=== PATIENT | female | born 1970 | race Caucasian/White ===

== ENCOUNTER 2017-11-13 18:13 | Emergency (ER) | payer MEDICAID ==
[~2017-11-13] VITALS: Ht 160 cm; Wt 78.3 kg
[~2017-11-13 18:13] MED LIST: DENIES
[2017-11-13 18:23] VITALS: Ht 160 cm; Wt 78.3 kg
--- NOTE | 2017-11-14 03:40 | ERD ---
ER Documentation Chief Complaint Chief Complaint bib self from clinic for left sided facial numbness, HPI 47-year-old female presents to the emergency department for complaints of right- sided facial paralysis, right-sided ear pain, right-sided tongue pain as well as tingling in her right upper extremity. She states her symptoms began approximately 21 hours ago and have remained constant. Patient denies weakness in her extremities, numbness, confusion, headache, nausea, vomiting, dizziness or blurred vision. She denies chest pain or shortness of breath. Denies recent illness, fever or chills. He was seen by her primary care physician who sent her to the emergency department to rule out acute stroke. ROS All systems reviewed and are negative except as per history of present illness. Medications Home Meds Reported Medications [Denies] No Conflict Check 05/17/11 Allergies Allergies: Coded Allergies: Penicillins (Verified Allergy, Unknown, 11/14/17) PMhx/Soc History of Surgery: Yes (CECESARIAN) Anesthesia Reaction: No Hx Neurological Disorder: No Hx Respiratory Disorders: Yes (ASTHMA) Hx Cardiac Disorders: No Hx Psychiatric Problems: No Hx Miscellaneous Medical Probl: No (DM) Hx Alcohol Use: No Hx Substance Use: No Hx Tobacco Use: No Smoking Status: Never smoker Physical Exam Vitals Vital Signs Date Time Temp Pulse Resp B/P Pulse Ox O2 Delivery O2 Flow Rate FiO2 11/13/17 21:59 97.9 85 16 145/69 96 Room Air 11/13/17 18:23 98.8 94 18 140/67 96 Physical Exam Const: Developed, well nourished, in no acute distress Head: Atraumatic Eyes: Normal Conjunctiva ENT: Normal External Ears, Nose and Mouth. Neck: Full range of motion..~ No meningismus. Resp: Clear to auscultation bilaterally Cardio: Regular rate and rhythm, no murmurs Abd: Soft, non tender, non distended. Normal bowel sounds Skin: No petechiae or rashes Back: No midline or flank tenderness Ext: No cyanosis, or edema. Patient with equal strength against resistance at bilateral shoulders elbows and wrists. Distal radial, median, ulnar motor function intact. Radial pulses 2+ and equal distally. His capillary refill distally. She is able to bear full weight and ambulate. Neur: Awake and alert, PERRLA, EOMI. No pronator drift. Finger to nose intact. Patient with obvious right-sided facial droop. Patient with asymmetric smile and unable to puff her cheeks on the right side. She is unable to raise her eyebrow on the right side of her face. She is able to close both eylids completely and has good strength against resistance. Psych: Normal Mood and Affect Results 24 hrs Current Medications Medications (Trade) Dose Ordered Sig/Fabby Route PRN Reason Start Time Stop Time Status Last Admin Dose Admin Prednisone (Prednisone) 60 mg ONCE ONCE PO 11/14/17 04:00 11/14/17 04:01 DC 11/14/17 04:31 Valacyclovir HCl (Valtrex) 1,000 mg ONCE ONCE PO 11/14/17 04:00 11/14/17 04:01 DC 11/14/17 04:31 Procedures/MDM PROCEDURE: CT Brain without contrast. CLINICAL INDICATION: Right facial droop, right upper extremity tingling TECHNIQUE: A CT of the brain was performed on a GE 64-slice CT scanner utilizing axial imaging from the skull base through the vertex without IV contrast. Multiplanar reformatted images were not submitted. Images were reviewed on a PACS workstation. The CTDIvol is 44.93 mGy and the DLP is 720.23 mGycm. One or more of the following dose reduction techniques were used: automated exposure control, adjustment of the mA and/or kV according to patient size, or use of iterative reconstruction technique. DICOM images are available. COMPARISON: None FINDINGS: There is no intracranial hemorrhage, mass effect, or midline shift. No extra- axial fluid collection is seen. The ventricles and sulci are normal in size and configuration. The density of the brain is normal, and the sloan white matter differentiation appears well-preserved. The brainstem and posterior fossa are normal. The calvarium is normal. The paranasal sinuses are well pneumatized. There is a left odin bullosa. IMPRESSION: 1. No evidence of acute intracranial pathology. RPTAT: HCNS Physician William Date Time Electronically viewed and signed by Physician William on 11/14/2017 04: 44 CS/ CC: YUNI BECKHAM PA-C This is a 47-year-old otherwise healthy female presents the emergency department for complaints of right-sided facial droop 21 hours. Patient reported right-sided upper extremity and facial tingling as well as pain in her tongue and right ear. She denied headache, nausea, vomiting, dizziness, confusion, numbness, chest pain or shortness of breath. Physical exam with complete right-sided facial paralysis including paralysis of her frontalis muscle. She was alert and oriented 3 and otherwise neurologically intact. Patient did not exhibit weakness in her upper extremity and was neurovascularly intact distally. Vital signs reviewed and unremarkable upon arrival. EKG: Interpreted by supervising physician [place]. Rate/Rhythm: Normal Sinus Rhythm QRS, ST, T-waves: No changes consistent w/ acute ischemia Impression: No evidence of acute ischemia or arrhythmia. Possible left atrial enlargement. CT without evidence of acute process. Imaging results provided to patient. Patient symptoms likely due to an acute viral syndrome or Scruggs's palsy. At this time low suspicion for acute stroke, coronary syndrome, PE, DVT or CVA. She received 1 dose of steroids and valacyclovir while in the emergency department. Recommended for her to continue this treatment for 1 week with close follow-up with her primary care provider. Strict return precautions discussed. Based on patient's history of present illness and physical examination the decision was made to discharge. The patient was re-evaluated after ED treatment and stabilizing measures, and symptoms have improved. There is no evidence of life threatening injuries or illnesses at this time. On re-examination, patient resting in no distress, stable vital signs, reports feeling better and safe for discharge with outpatient follow up with PMD in 1-2 days. Patient given return precautions. Departure Diagnosis: Primary Impression: Facial paralysis on right side Additional Impressions: Tingling of right arm and right side of face Scruggs's palsy YUNI BECKHAM PA-C Nov 14, 2017 03:40
[2017-11-14] MEDS ORDERED: predniSONE 20 MG TAB PO ONE (04:00)
[2017-11-14] MEDS ORDERED: VALACYCLOVIR 500 MG TAB PO ONE (04:00)
--- NOTE | 2017-11-14 04:45 | RADRPT ---
PROCEDURE: CT Brain without contrast. CLINICAL INDICATION: Right facial droop, right upper extremity tingling TECHNIQUE: A CT of the brain was performed on a GE 64-slice CT scanner utilizing axial imaging fr om the skull base through the vertex without IV contrast. Multiplanar reformatted images were not s ubmitted. Images were reviewed on a PACS workstation. The CTDIvol is 44.93 mGy and the DLP is 720. 23 mGycm. One or more of the following dose reduction techniques were used: automated exposure cont rol, adjustment of the mA and/or kV according to patient size, or use of iterative reconstruction te chnique. DICOM images are available. COMPARISON: None FINDINGS: There is no intracranial hemorrhage, mass effect, or midline shift. No extra-axial fluid collection is seen. The ventricles and sulci are normal in size and configuration. The density of the brain is normal, and the sloan white matter differentiation appears well-preserved. The brainstem and posteri or fossa are normal. The calvarium is normal. The paranasal sinuses are well pneumatized. There is a left odin bullosa. IMPRESSION: 1. No evidence of acute intracranial pathology. RPTAT: HCNS Physician William Date Time Electronically viewed and signed by Physician William on 11/14/2017 04:44 /
[2017-11-14] MEDS ORDERED: VALA10004 PO (04:54)
[2017-11-14] MEDS ORDERED: TETR15DR12 OP (04:54)
[2017-11-14] MEDS ORDERED: PRED20TA PO (04:54)
[2017-11-14 05:08] VITALS: BP 128/65; PULSE 78; RESP 20; TEMP 98.4
== END 2017-11-14 05:00 | disposition home or self-care (01) ==
LOC: FTE 18:13
DX: G51.0 Bell's palsy (principal); J45.909 Unspecified asthma, uncomplicated; E11.9 Type 2 diabetes mellitus without complications; R42 Dizziness and giddiness
CPT/HCPCS: 70450; 93005; J7512; Z7502; Z7610

== ENCOUNTER 2018-01-21 14:25 | Inpatient (IN) | END 2018-03-22 20:35 | disposition home health service (06) | DRG 871 ==

== ENCOUNTER 2018-12-25 09:28 | Emergency (ER) | payer MEDICAID, OTHER ==
[~2018-12-25] VITALS: Wt 89.0 kg
[~2018-12-25 09:28] MED LIST changes: -DENIES; +LACT1CAP28 PO; +METF500T PO; +PANT40TA4 PO; +PUMP MISCELLANEOUS MC
[2018-12-25 09:35] VITALS: BP 143/63; PULSE 99; RESP 18
[2018-12-25] MEDS ORDERED: KETOROLAC 30 MG INJ IM STA (10:39)
[2018-12-25] MEDS ORDERED: NITR-58 PO (12:34)
[2018-12-25] MEDS ORDERED: METR500T PO (12:34)
[2018-12-25] MEDS ORDERED: FLUCONAZOLE 150 MG TAB PO ONE (13:00)
--- NOTE | 2018-12-25 21:39 | ERD ---
ER Documentation Chief Complaint Chief Complaint GENITAL ITCHING X 6 DAYS HPI 48-year-old female presents for genital itchiness times 6 days. she also admits to some white vaginal discharge. She has pelvic pain and vaginal pain. She also states that she has abdominal pain. Abdominal and pelvic pain is on the left side. She denies any fevers or chills. Denies nausea or vomiting. She does however admit to some dysuria described as a burning sensation. No other complaints. ROS All systems reviewed and are negative except as per history of present illness. Medications Home Meds Active Scripts Nitrofurantoin Monohyd Macrocr* (Macrobid*) 100 Mg Capsr, 100 MG PO BID for UTI for 4 Days, #8 CAP Prov:DIONISIO HILL DO 12/25/18 Metronidazole* (Flagyl*) 500 Mg Tablet, 500 MG PO BID for vaginitis for 7 Days, #14 TAB Prov:DIONISIO HILL DO 12/25/18 Miscellaneous* PUMP (Miscellaneous* PUMP) 1 Each Pump.resvr, 1 EACH MC . DIRECTED, #7 EA Prov:REGNEILRSIMON 03/22/18 Pantoprazole* (Pantoprazole*) 40 Mg Tablet.dr, 40 MG PO DAILY@06, #30 TAB Prov:REGNEILRSIMON 03/22/18 Metformin Hcl (Glucophage) 500 Mg Tablet, 1000 MG PO BID WITH MEALS, #60 TAB Prov:REGIDORSIMON 03/22/18 Lactobacillus Rhamnosus GG (Culturelle) 1 Each Capsule, 1 CAP PO BID, #30 CAP Prov:REGNEILRSIMON 03/22/18 Allergies Allergies: Coded Allergies: Penicillins (Verified Allergy, Unknown, 12/25/18) PMhx/Soc History of Surgery: Yes () Anesthesia Reaction: No Hx Neurological Disorder: No Hx Respiratory Disorders: Yes (asthma) Hx Cardiac Disorders: No Hx Psychiatric Problems: No Hx Miscellaneous Medical Probl: No Hx Alcohol Use: No Hx Substance Use: No Hx Tobacco Use: No Smoking Status: Never smoker Physical Exam Vitals Vital Signs Date Temp Pulse Resp B/P (MAP) Pulse Ox O2 O2 Flow FiO2 Time Delivery Rate 12/25/18 98.1 99 18 143/63 99 09:35 (89) Physical Exam Const: No acute distress Resp: Clear to auscultation bilaterally Cardio: Regular rate and rhythm, no murmurs Abd: Soft, non tender, non distended. Normal bowel sounds Skin: No petechiae or rashes Back: No midline or flank tenderness Ext: No cyanosis, or edema Neur: Awake and alert Psych: Normal Mood and Affect Results 24 hrs Laboratory Tests Test 12/25/18 10:52 12/25/18 10:56 POC Beta HCG, Qualitative NEGATIVE White Blood Count 12.6 10^3/ul Red Blood Count 5.24 10^6/ul Hemoglobin 14.6 g/dl Hematocrit 44.0 % Mean Corpuscular Volume 84.0 fl Mean Corpuscular Hemoglobin 27.9 pg Mean Corpuscular Hemoglobin Concent 33.2 g/dl Red Cell Distribution Width 12.6 % Platelet Count 262 10^3/UL Mean Platelet Volume 10.0 fl Immature Granulocytes % 0.200 % Neutrophils % 71.7 % Lymphocytes % 21.3 % Monocytes % 5.6 % Eosinophils % 0.9 % Basophils % 0.3 % Nucleated Red Blood Cells % 0.0 /100WBC Immature Granulocytes # 0.030 10^3/ul Neutrophils # 9.0 10^3/ul Lymphocytes # 2.7 10^3/ul Monocytes # 0.7 10^3/ul Eosinophils # 0.1 10^3/ul Basophils # 0.0 10^3/ul Nucleated Red Blood Cells # 0.0 10^3/ul Urine Color YELLOW Urine Clarity SLIGHTLY CLOUDY Urine pH 6.0 Urine Specific [place] 1.024 Urine Ketones NEGATIVE mg/dL Urine Nitrite NEGATIVE mg/dL Urine Bilirubin NEGATIVE mg/dL Urine Urobilinogen NEGATIVE mg/dL Urine Leukocyte Esterase 1+ Maribel/ul Urine Microscopic RBC 3 /HPF Urine Microscopic WBC 6 /HPF Urine Squamous Epithelial Cells FEW /HPF Urine Hemoglobin NEGATIVE mg/dL Urine Glucose 3+ mg/dL Urine Total Protein NEGATIVE mg/dl Sodium Level 138 mmol/L Potassium Level 4.1 mmol/L Chloride Level 98 mmol/L Carbon Dioxide Level 29 mmol/L Anion Gap 11 Blood Urea Nitrogen 14 mg/dl Creatinine 0.64 mg/dl Est Glomerular Filtrat Rate mL/min > 60 mL/min Glucose Level 316 mg/dl Calcium Level 9.6 mg/dl Total Bilirubin 0.3 mg/dl Direct Bilirubin 0.00 mg/dl Indirect Bilirubin 0.3 mg/dl Aspartate Amino Transf (AST/SGOT) 22 IU/L Alanine Aminotransferase (ALT/SGPT) 23 IU/L Alkaline Phosphatase 122 IU/L Total Protein 8.1 g/dl Albumin 4.4 g/dl Globulin 3.70 g/dl Albumin/Globulin Ratio 1.18 Lipase 106 U/L Current Medications Medications Dose Sig/Fabby Start Time Status Last (Trade) Ordered Route PRN Stop Time Admin Dose Reason Admin Ketorolac 30 mg ONCE STAT 12/25/18 DC 12/25/18 Tromethamine IM 10:39 10:59 (Toradol) 12/25/18 10:40 Fluconazole 150 mg ONCE ONCE 12/25/18 DC 12/25/18 (Diflucan) PO 13:00 13:09 12/25/18 13:01 Procedures/MDM Medical Decision Making: Differential diagnosis includes but not limited to urinary tract infection, fungal infection, bacterial infection Patient appeared well on physical exam. CBC showed WBC mildly elevated at 12.6, no anemia noted CMP showed normal electrolytes, glucose noted to be 316, kidney function normal, alkaline phosphatase 122 alkaline UA consistent with a urinary tract infection Urine test was negative ED course: Patient was given Toradol and Diflucan. Symptoms improved with treatment. Prescription(s): Patient given prescription for Macrobid for UTI and Flagyl for empiric treatment of vaginitis. Patient advised to follow up with PCP in 1-2 days. Patient advised to return to ED for new or worsening symptoms. Patient stable on discharge from the ED. Disclaimer: Inadvertent spelling and grammatical errors are likely due to EHR/dictation software use and do not reflect on the overall quality of patient care. Also, please note that the electronic time recorded on this note does not necessarily reflect the actual time of the patient encounter. Departure Diagnosis: Primary Impression: Vaginitis Additional Impression: UTI (urinary tract infection) Condition: Fair Patient Instructions: Understanding Urinary Tract Infections (UTIs), Metronidazole Oral tablet Referrals: COMMUNITY CLIN[facility] YOU HAVE RECEIVED A MEDICAL SCREENING EXAM AND THE RESULTS INDICATE THAT YOU DO NOT HAVE A CONDITION THAT REQUIRES URGENT TREATMENT IN THE EMERGENCY DEPARTMENT. FURTHER EVALUATION AND TREATMENT OF YOUR CONDITION CAN WAIT UNTIL YOU ARE SEEN IN YOUR DOCTORS OFFICE WITHIN THE NEXT 1-2 DAYS. IT IS YOUR RESPONSIBILITY TO MAKE AN APPOINTMENT FOR FOLOW-UP CARE. IF YOU HAVE A PRIMARY DOCTOR --you should call your primary doctor and schedule an appointment IF YOU DO NOT HAVE A PRIMARY DOCTOR YOU CAN CALL OUR PHYSICIAN REFERRAL HOTLINE AT IF YOU CAN NOT AFFORD TO SEE A PHYSICIAN YOU CAN CHOSE FROM THE FOLLOWING [facility] [address] [facility] [address] [facility] [address] [facility] [address] [facility] [address] [facility]. [facility]. [address] Additional Instructions: Llame al doctor MAANA y jonas elmer ANGELES PARA DENTRO DE 1-2 SHERMAN.Dgale a la secretaria que nosotros le instruimos hacer esta [place].Avise o llame si murillo condicin se empeora antes de la [place]. Regresa aqui si peor o no mejor. DIONISIO HILL DO Dec 25, 2018 21:38
== END 2018-12-25 13:13 | disposition home or self-care (01) ==
LOC: FTE 09:28
DX: N76.0 Acute vaginitis (principal); N39.0 Urinary tract infection, site not specified; J45.909 Unspecified asthma, uncomplicated
CPT/HCPCS: 76830; 76856; 80053; 81001; 81025; 83690; 85025; J1885; Z7610; 36415; 96372